=== PATIENT | female | born 1975 | race Caucasian/White ===

== ENCOUNTER 2017-11-15 05:34 | Inpatient (IN) | payer OTHER ==
[2017-11-15] MEDS ORDERED: Gabapentin 300 MG Cap PO ONE (05:45)
[2017-11-15] MEDS ORDERED: Celecoxib 200 MG Cap PO ONE (05:45)
[2017-11-15] MEDS ORDERED: Scopolamine 1.5 MG Transdermal Patch TOP SCH (05:45)
[2017-11-15] MEDS ORDERED: Albuterol/Ipratropium 3.0-0.5 MG/3 ML Neb Soln NEB ONE (06:00)
[2017-11-15] MEDS ORDERED: Dextrose 5%-Lactated Ringers 1,000 ML IV SCH (06:00)
[2017-11-15] MEDS ORDERED: Meropenem 500 MG in Sodium Chloride 0.9% 50 ML IV ONE (06:00)
[2017-11-15] MEDS ORDERED: Acetaminophen 500 MG Tab PO ONE (06:00)
[2017-11-15] MEDS: Acetaminophen 500 MG Tab PO ONE ×3 (06:03→07:11)
[2017-11-15] MEDS ORDERED: cefOXitin 2 GM Vial ONE (06:47)
[2017-11-15] MEDS ORDERED: fentaNYL 250 MCG/5 ML SDV ONE (07:08)
[2017-11-15] MEDS ORDERED: Glycopyrrolate 0.2 MG/ML 5 ML MDV ONE (07:08)
[2017-11-15] MEDS ORDERED: Succinylcholine 200 MG/10 ML MDV ONE (07:08)
[2017-11-15] MEDS ORDERED: Propofol 200 MG/20 ML SDV ONE (07:08)
[2017-11-15] MEDS ORDERED: Dexamethasone 4 MG/ML SDV ONE (07:08)
[2017-11-15] MEDS ORDERED: Ondansetron 4 MG/2 ML SDV ONE (07:08)
[2017-11-15] MEDS ORDERED: Neostigmine Methylsulfate 1 MG/ML 5 ML Syringe ONE (07:08)
[2017-11-15] MEDS ORDERED: Rocuronium 50 MG/5 ML Vial ONE (07:08)
[2017-11-15] MEDS ORDERED: Atropine 0.4 MG/ML SDV ONE (07:57)
[2017-11-15] MEDS ORDERED: Ketamine 500 MG/5 ML MDV IV SCH (08:00)
[2017-11-15] MEDS ORDERED: Lidocaine 2% 100 MG/5 ML Syringe IVPUSH SCH (08:00)
[2017-11-15] MEDS ORDERED: Lidocaine 0.4%/D5W 2 GM/500 ML BAG IV SCH ×2 (08:00)
[2017-11-15] MEDS ORDERED: Ropivacaine 50 ML, Dexamethasone 8 MG, EPINEPHrine 0.4 MG, Sodium Chloride 0.9% 27.6 ML NERVRT SCH ×4 (08:00)
[2017-11-15] MEDS ORDERED: fentaNYL 100 MCG/2 ML SDV ONE (09:35)
[2017-11-15] MEDS ORDERED: Insulin Lispro 100 Unit/ML 3 ML KwikPen SUBCUT ONE (10:15)
[2017-11-15] MEDS: hydrOXYzine HCl 100 MG/2 ML SDV IM PRN ×2 (11:51→20:14)
[2017-11-15] MEDS ORDERED: Labetalol 20 MG/4 ML Syringe IVPUSH PRN (12:00)
[2017-11-15] MEDS ORDERED: Ondansetron 4 MG/2 ML SDV IVPUSH PRN (12:00)
[2017-11-15] MEDS ORDERED: diphenhydrAMINE 50 MG/ML SDV IVPUSH PRN (12:00)
[2017-11-15] MEDS ORDERED: Albuterol/Ipratropium 3.0-0.5 MG/3 ML Neb Soln INH PRN (12:00)
[2017-11-15] MEDS ORDERED: Metoclopramide 10 MG/2 ML SDV IVPUSH PRN (12:00)
[2017-11-15] MEDS ORDERED: SCOPOLAMINE PATCH CHECK TOP SCH (12:00)
[2017-11-15] MEDS ORDERED: Pantoprazole 40 MG Vial IVPUSH SCH (13:00)
[2017-11-15] MEDS: Meropenem 500 MG in Sodium Chloride 0.9% 50 ML IV SCH ×2 (13:38→17:51)
[2017-11-15] MEDS ORDERED: Gabapentin 250 MG/5 ML Solution ML 470 ML Bottle PO SCH (14:00)
[2017-11-15] MEDS: Acetaminophen Soln 650 MG/20.3 ML UD Cup PO SCH ×2 (15:02→19:04)
[2017-11-15] MEDS: Albuterol/Ipratropium 3.0-0.5 MG/3 ML Neb Soln INH SCH ×2 (15:08→20:15)
[2017-11-15] MEDS ORDERED: MVI, Adult with Vitamin K 10 ML, Thiamine 200 MG, Chromium/Copper/Mang/Selen/Zn 1 ML in... IV SCH ×4 (16:00)
[2017-11-15] MEDS: Insulin Lispro 100 Unit/ML 3 ML KwikPen SUBCUT PRN ×2 (16:01→21:50)
[2017-11-15] MEDS ORDERED: metFORMIN 500 MG Tab PO SCH (17:00)
[2017-11-15] MEDS: Heparin Sodium 5,000 Units/ML Vial SUBCUT SCH (17:51)
[2017-11-15] MEDS: Dextrose 5%-Lactated Ringers 1,000 ML IV SCH (22:08)
[2017-11-16] MEDS: Acetaminophen Soln 650 MG/20.3 ML UD Cup PO SCH ×4 (01:12→21:35)
[2017-11-16] MEDS: Meropenem 500 MG in Sodium Chloride 0.9% 50 ML IV SCH (01:12)
[2017-11-16] MEDS ORDERED: Iohexol 647 MG/ML 50 ML SDV PO ONE (03:30)
[2017-11-16] MEDS: Dextrose 5%-Lactated Ringers 1,000 ML IV SCH (04:13)
[2017-11-16] MEDS: Insulin Lispro 100 Unit/ML 3 ML KwikPen SUBCUT PRN ×2 (04:26→10:27)
[2017-11-16] MEDS: hydrOXYzine HCl 100 MG/2 ML SDV IM PRN (04:26)
[2017-11-16] MEDS: Heparin Sodium 5,000 Units/ML Vial SUBCUT SCH ×2 (05:47→18:02)
[2017-11-16] MEDS ORDERED: Lactated Ringers 1,000 ML IV SCH (06:15)
[2017-11-16] MEDS ORDERED: Ondansetron 4 MG Tab.DIS PO PRN (06:37)
[2017-11-16] MEDS ORDERED: Albuterol 8 GM Inhaler INH PRN (06:38)
[2017-11-16] MEDS ORDERED: Non-Formulary Medication 1 Each (Etonogestrel [Nexplanon] 68 MG) SQ SCH (06:45)
[2017-11-16] MEDS: Albuterol/Ipratropium 3.0-0.5 MG/3 ML Neb Soln INH SCH ×4 (07:33→22:32)
[2017-11-16] MEDS ORDERED: metFORMIN 500 MG Tab PO SCH (08:00)
[2017-11-16] MEDS: metFORMIN 500 MG Tab PO SCH ×2 (08:29→16:00)
[2017-11-16] MEDS: Celecoxib 200 MG Cap PO SCH (08:29)
--- NOTE | 2017-11-16 09:20 | CR ---
UGI wo KUB HISTORY: eval R -Y GBP FINDINGS: After administration of oral contrast, upright views were obtained. Post operative changes gastric bypass. Surgical drains in place. No evidence for leak. Contrast passes freely into proximal small bowel loops. IMPRESSION: No evidence for leak or obstruction.
--- NOTE | 2017-11-16 09:44 | PN ---
DATE OF SERVICE: 11/16/2017 SUBJECTIVE: Juany is postoperative day #1, her upper GI this morning was normal. She had a temp max of 101.2, pulse was in the 90s, after using IS it improved. Rates pain between a 3/10 and a 6/10. Blood sugars were 280 and 160. She has been up ambulating. REVIEW OF SYSTEMS: Remainder of review of systems negative for any pertinent positives and negatives. OBJECTIVE: GENERAL: Juany Will is a 42-year-old female. She is alert and orientated. VITAL SIGNS: TPR 99.3, 99, 18, and blood pressure 156/79. HEENT: Negative. NECK: Supple. HEART: Regular rate and rhythm. LUNGS: Clear. ABDOMEN: Dressings dry and intact. GIAN drain intact. EXTREMITIES: Without peripheral edema. ASSESSMENT: Laparoscopic Nahed-en-Y gastric bypass surgery, liver biopsy, repair of diaphragmatic hernia and excision of mediastinal lipoma for morbid obesity, marked hepatomegaly, diaphragmatic hernia, and mediastinal lipoma. Date of surgery 11/15/2017. Surgeon, Isaac Cesar MD. PLAN: 1. Dilaudid 2 mg 1 to 2 every 4 hours p.r.n. pain. 2. Metformin 1000 mg b.i.d., Celebrex, Nexplanon continue, losartan 25 mg p.o. daily, propranolol 80 mg p.o. b.i.d.; Sertraline (Zoloft) 100 mg p.o. daily, Dyazide 37.5/25 one capsule daily, and Zofran ODT 4 mg p.o. q.4 hours p.r.n. nausea. 3. Good pulmonary toilet. 4. We will evaluate p.r.n. or in the a.m. Ирина Gillette PA-C /[id number]
[2017-11-16] MEDS: Losartan 50 MG Tab PO SCH (10:15)
[2017-11-16] MEDS: Propranolol 40 MG Tab PO SCH ×2 (10:15→21:35)
[2017-11-16] MEDS: HYDROmorphone 2 MG Tab PO PRN ×3 (10:15→21:39)
[2017-11-16] MEDS: Hydrochlorothiazide/Triamterene 25-37.5 Tab PO SCH (10:16)
[2017-11-16] MEDS: Sertraline 50 MG Tab PO SCH (10:16)
[2017-11-16] MEDS: Pantoprazole 40 MG Delayed-Release Granules 1 Packet PO SCH (12:31)
--- NOTE | 2017-11-16 15:16 | OR ---
DATE OF PROCEDURE: 11/15/2017 PREOPERATIVE DIAGNOSIS: Morbid obesity. POSTOPERATIVE DIAGNOSES: 1. Morbid obesity. 2. Extreme hepatomegaly. 3. Paraesophageal diaphragmatic hernia. 4. Mediastinal lipoma. PROCEDURE PERFORMED: 1. Laparoscopic Nahed-en-Y gastric bypass with long limb gastroenterostomy (15454). 2. Mario-Cut needle liver biopsy (43708). 3. Repair of paraesophageal diaphragmatic hernia (78314). 4. Excision of mediastinal lipoma (23986). ANESTHESIA: General. COMMERCIAL [employer]ES ACCOUNT ASSISTANT: Ирина Gillette PA-C. INDICATIONS FOR PROCEDURE: This is a 42-year-old presenting with longstanding morbid obesity and increasingly significant comorbidities, including a progressively difficult to manage type 2 diabetes mellitus. Plan is to proceed with a gastric bypass procedure. Potential risks including bleeding, infection, leaks from various GI tract closures, problems with bowel obstruction over time, as well as possibility of cardiopulmonary, septic, or hemorrhagic complications leading to were all discussed, and the patient wishes to proceed. DETAILS OF PROCEDURE: The patient was taken to the operating room and placed in a supine position. After general endotracheal anesthesia was induced, the abdomen was prepped and draped and an orogastric tube placed. At 15 cm inferior and 5 cm left of xiphoid process, a transverse incision was made and peritoneal cavity entered under direct vision with Optiview trocar and inflated to 15 mmHg pressure with CO2. Following this, 5 additional trocars were placed across the upper and mid abdomen. General exploration was undertaken. The patient was noted to have marked hepatomegaly. This hepatomegaly was quite striking with the left lobe liver coming down almost to the left of the umbilicus. The liver was grossly fatty infiltrated, but not cirrhotic. Mario-Cut needle biopsies obtained in the left lobe liver. Minimal bleeding from the biopsy sites was seen and the area then cauterized. Bilateral subcostal transversus abdominis plane blocks were then placed with direct visualization of the needle in the correct plane. The omentum was then divided in the midline up to the level of the transverse colon. This allowed identification of the small bowel to the ligament of Treitz. Small bowel was then traced out 150 cm distal to that point, where it was divided transversely with RENE stapler. Small bowel was then traced out an additional 200 cm, where the [id number] enteroenterostomy was accomplished with internal firing of the Endo-RENE 60 mm stapler. The common opening was then closed transversely with the same stapler, the angles anastomosed, and the mesenteric defect approximated with some 0 Ethibond stitch, along with fibrin sealant. The divided end of the Nahed limb was then from the mesentery for a few centimeters, which allowed an antecolic position of the Nahed limb up to the level of the gastroesophageal junction without tension. The liver was retracted anteriorly. The patient was noted to have a moderate-sized paraesophageal diaphragmatic hernia with prolapse of a portion of the gastric fundus and perigastric fat in a plane anterior to the course of the esophagus. This was reduced and the peritoneum overlying incised and reflected downward. Anterior repair of the diaphragmatic hernia was then accomplished with 0 Ethibond sutures and reinforced with PTFE pledgets. During the course of the mediastinal dissection, a lipoma was encountered, and the mediastinal lipoma was excised and sent as a separate specimen. The gastrointestinal catheter was then inflated to 15 mL and pulled up snugly against the EG junction. The gastric wall over the apex balloon was then marked with electrocautery and balloon catheter deflated and pulled up in the esophagus. The lesser omental tissue adjacent to the gastric cardia was then incised, allowing dissection of the stomach behind the gastric cardia. The pouch formation was initiated with transverse firing on the gastric cardia at the point of the cauterized jeffrey. Pouch was then completed with 2 additional firings of RENE stapler up to and through the angle of His. Upon completion of the pouch, both staple lines were noted to be intact. The anvil of a 25 mm EEA stapler was attached to a [place] sump type tube. The latter was taken out through a small opening in the gastric pouch, allowing the anvil likewise to be pulled down within the gastric pouch. The divided Nahed limb was then opened and the main body of the EEA stapler passed several centimeters in the lumen of the small bowel and brought up the anvil and united with it, thus creating the gastrojejunostomy. Upon removal of the stapler, double donuts of mucosa were noted within it. The small bowel was closed off with a vascular staple line. Gastrojejunostomy was reinforced with some 3-0 Vicryl seromuscular stitch, along with fibrin sealant. Leak test was accomplished with injection of 120 mL of air in the gastric pouch while submerged with a cefoxitin-containing saline solution. A single Cheng-Pastor drain was then placed through the left lateral trocar site and positioned adjacent to the gastric cardia and from there up into the splenic fossa. With no further problems noted, trocars were removed and the peritoneal cavity deflated. Incision at the skin level was closed with 4-0 Vicryl stitch, which was also used to affix the drain. The patient was taken to the recovery room in satisfactory condition. There were no other complications. Physician plant attendant or assistant operator, Ирина Gillette, played an essential role in assisting in this case, helping to positioning the patient, retract structures as needed, as well as suturing and cutting sutures when indicated. Her presence improved patient safety and decreased operative time. Isaac Cesar MD /[id number]
[2017-11-16] MEDS ORDERED: MVI, Adult with Vitamin K 10 ML, Thiamine 200 MG, Chromium/Copper/Mang/Selen/Zn 1 ML in... IV SCH ×4 (16:00)
[2017-11-16] MEDS ORDERED: Non-Formulary Medication 1 Each (Atorvastatin [Lipitor] 40 MG) PO SCH (21:00)
[2017-11-16] MEDS ORDERED: diphenhydrAMINE 25 MG Cap PO PRN (23:04)
[2017-11-17] MEDS: Acetaminophen Soln 650 MG/20.3 ML UD Cup PO SCH ×2 (03:05→08:01)
[2017-11-17] MEDS: Heparin Sodium 5,000 Units/ML Vial SUBCUT SCH (05:55)
[2017-11-17] MEDS ORDERED: hydrOXYzine HCl 25 MG Tab PO PRN (06:55)
[2017-11-17] MEDS: Albuterol/Ipratropium 3.0-0.5 MG/3 ML Neb Soln INH SCH (07:21)
[2017-11-17] MEDS: HYDROmorphone 2 MG Tab PO PRN (08:00)
[2017-11-17] MEDS: metFORMIN 500 MG Tab PO SCH (08:01)
[2017-11-17] MEDS: Propranolol 40 MG Tab PO SCH (08:01)
[2017-11-17] MEDS: Celecoxib 200 MG Cap PO SCH (08:01)
[2017-11-17] MEDS: Losartan 50 MG Tab PO SCH (08:02)
[2017-11-17] MEDS: Sertraline 50 MG Tab PO SCH (08:02)
[2017-11-17] MEDS: Hydrochlorothiazide/Triamterene 25-37.5 Tab PO SCH (08:02)
[2017-11-17] MEDS: Pantoprazole 40 MG Delayed-Release Granules 1 Packet PO SCH (08:06)
[2017-11-17] MEDS ORDERED: Cyanocobalamin (Vitamin B12) 1,000 MCG/ML SDV IM ONE (09:00)
--- NOTE | 2017-11-17 09:24 | DISCH ---
ADMISSION DIAGNOSES: Morbid obesity, BMI 42.2; hypertension; diabetes type 2, uncontrolled; hyperlipidemia; gastroesophageal reflux disease; anxiety. DISCHARGE DIAGNOSES: Laparoscopic Nahed-en-Y gastric bypass surgery with long limb gastroenterostomy, Mario-Cut needle liver biopsy, repair of paraesophageal diaphragmatic hernia, and excision of mediastinal lipoma for morbid obesity, extreme hepatomegaly, paraesophageal diaphragmatic hernia, mediastinal lipoma. Date of surgery: 11/15/2017. Surgeon: Isaac Cesar MD. HISTORY: Juany Will is a 42-year-old female with longstanding history of morbid obesity and increasing comorbidities. After preoperative evaluation, discussion of possible risks and possible complications, she wished to proceed with surgical procedure. HOSPITAL COURSE: Juany had her surgery on 11/15/2017. She had no operative complications. On postoperative day #1, she was started on a step-2 gastric bypass diet without cereal. She received dietary instructions. On postoperative day #2, her vital signs were stable. Pain was managed. Activity was good. Oral intake adequate. She was able to be discharged to home. PHYSICAL EXAMINATION: GENERAL: Juany Will is a 42-year-old female. VITAL SIGNS: Height is 5 feet 1 inch, weight is 223 pounds 3.2 ounces, BMI 42.3. HEENT: Negative. NECK: Supple. HEART: Regular rate and rhythm. LUNGS: Clear. ABDOMEN: Sutures intact at the time of exam. GIAN drain remained intact but will be removed prior to discharge. Abdominal binder is on. EXTREMITIES: Without peripheral edema. DISPOSITION: Discharged to home. CONDITION: Stable and improving. FOLLOWUP APPOINTMENT: With Ирина Gillette PA-C at [place], [place] on 11/22/2017 at 10:30 a.m. HOME MEDICATIONS: 1. Tylenol 650 mg q.6 h. for pain. 2. Dilaudid 2 mg 1 to 2 every 4 hours p.r.n. pain #30. 3. Hydroxyzine 25 mg oral q.6 h. p.r.n. pain #30. 4. Milk of magnesia 30 mL daily until BM. Two doses were sent home with the patient. 5. Metformin 1000 mg immediate release oral twice daily with meals, #60. 6. Zofran ODT one q.4 h. p.r.n. nausea #30. She is to resume home medication of ProAir inhaler 1 to 2 puffs every 4 hours p.r.n. shortness of breath, Celebrex 200 mg oral daily, Nexplanon, Cozaar 25 mg oral daily, omeprazole 40 mg oral daily, propranolol/Inderal 80 mg oral twice daily, sertraline/Zoloft 50 mg oral daily, triamterene hydrochlorothiazide/Dyazide 37.5/25 one daily. Stop taking Trulicity, fenofibrate until next appointment. Ferrous sulfate, Amaryl, Lipitor, and metformin XR. Vitamins and medications will be reviewed at first postoperative appointment. DISCHARGE DIET: Step-2 gastric bypass diet with no cereal until 11/30/2017. Diet after discharge; drink 8 to 10 glasses of water a day. ACTIVITY: No lifting greater than 10 pounds for 2 weeks. Other activity; walk at least 6 times daily, distance and time as tolerated inside your home. Driving: Do not drive for 1 week and then while on pain medication. Shower/bathing; may shower. DISCHARGE INSTRUCTIONS: Notify provider if any fever, increased pain, swelling, redness, nausea, or vomiting. Wound care: Keep site clean and dry. Wear abdominal binder for 2 weeks and then as tolerated. SPECIAL INSTRUCTIONS: 1. Check blood sugars twice a day and bring to clinic appointments. 2. Keep a record of protein and liquid intake and bring to clinic appointments. 3. Use incentive spirometer 10 times every hour while awake.
== END 2017-11-17 10:52 | disposition home or self-care (01) | DRG 621 ==
LOC: JP.SDS 05:34 → JP.SDSSCHI 05:34 → EDSTATUS 08:30 → JP.2SS 09:50
PROVIDERS: ADMIT Surgery; ATTEND Surgery
PROC: 0FB24ZX Excision of Left Lobe Liver, Percutaneous Endoscopic Approach, Diagnostic (ICD-10-PCS; principal; 2017-11-15)
PROC: 0JB63ZZ Excision of Chest Subcutaneous Tissue and Fascia, Percutaneous Approach (ICD-10-PCS; principal; 2017-11-15)
PROC: 0BQT4ZZ Repair Diaphragm, Percutaneous Endoscopic Approach (ICD-10-PCS; principal; 2017-11-15)
PROC: 0D164ZA Bypass Stomach to Jejunum, Percutaneous Endoscopic Approach (ICD-10-PCS; principal; 2017-11-15)
DX: E66.01 Morbid (severe) obesity due to excess calories (principal); E11.9 Type 2 diabetes mellitus without complications; Z68.41 Body mass index [BMI] 40.0-44.9, adult; I10 Essential (primary) hypertension; E78.5 Hyperlipidemia, unspecified; K21.9 Gastro-esophageal reflux disease without esophagitis; F41.9 Anxiety disorder, unspecified; K44.9 Diaphragmatic hernia without obstruction or gangrene; R16.0 Hepatomegaly, not elsewhere classified; D17.1 Benign lipomatous neoplasm of skin and subcutaneous tissue of trunk; G47.00 Insomnia, unspecified; Z79.899 Other long term (current) drug therapy; Z79.84 Long term (current) use of oral hypoglycemic drugs; Z88.6 Allergy status to analgesic agent; Z88.1 Allergy status to other antibiotic agents; Z88.5 Allergy status to narcotic agent; Z77.22 Contact with and (suspected) exposure to environmental tobacco smoke (acute) (chronic); Z98.891 History of uterine scar from previous surgery
CPT/HCPCS: 36415; 74240; 74240-26; 81025; 82962; 86850; 86900; 86901; 94640; A9270-GY; C9113; J0171; J0330; J0461; J0694; J1100; J1644; J1815; J2001; J2185; J2405; J2704; J2710; J2795; J3010; J3410; J3411; J3420; J3490; J7030; J7042; J7050; J7120; J7620-GY; Q9967

== ENCOUNTER 2021-04-10 07:11 | Day surgery (SDC) | payer OTHER ==
[2021-04-10] MEDS ORDERED: Dextrose 5%-Lactated Ringers 1,000 ML IV SCH (08:00)
[2021-04-10] MEDS ORDERED: Albuterol/Ipratropium 3.0-0.5 MG/3 ML Neb Soln NEB ONE (08:00)
[2021-04-10] MEDS ORDERED: Acetaminophen 500 MG Tab PO ONE (08:00)
[2021-04-10] MEDS ORDERED: Levofloxacin/Dextrose 5%-Water 500 MG in Premix Bag 1 BAG IV ONE (08:00)
[2021-04-10 08:09] LABS: CORONAVIRUS COVID-19 NAA POSITIVE (NEGATIVE)
[2021-04-10] MEDS ORDERED: Ketamine 14 MG in Sodium Chloride 0.9% 19.86 ML IV SCH (09:15)
[2021-04-10] MEDS ORDERED: Ketamine 500 MG/5 ML MDV IV SCH (09:15)
[2021-04-10] MEDS ORDERED: Ropivacaine 40 ML, dexAMETHasone 8 MG, EPINEPHrine 0.4 MG, Sodium Chloride 0.9% 37.6 ML NERVRT SCH ×4 (09:15)
== END 2021-04-10 08:35 | disposition home or self-care (01) ==
LOC: JP.SDS 07:11
PROVIDERS: ATTEND Surgery
DX: K82.8 Other specified diseases of gallbladder (principal); Z53.09 Procedure and treatment not carried out because of other contraindication; U07.1 COVID-19; E11.9 Type 2 diabetes mellitus without complications; I10 Essential (primary) hypertension; K21.9 Gastro-esophageal reflux disease without esophagitis; F41.9 Anxiety disorder, unspecified; E78.49 Other hyperlipidemia; E53.8 Deficiency of other specified B group vitamins; E55.9 Vitamin D deficiency, unspecified; Z90.49 Acquired absence of other specified parts of digestive tract; Z98.890 Other specified postprocedural states; Z79.899 Other long term (current) drug therapy; Z98.84 Bariatric surgery status; E66.01 Morbid (severe) obesity due to excess calories; Z88.5 Allergy status to narcotic agent; Z88.8 Allergy status to other drugs, medicaments and biological substances; Z68.33 Body mass index [BMI] 33.0-33.9, adult
CPT/HCPCS: 0241U

== ENCOUNTER 2021-06-05 08:37 | Day surgery (SDC) | payer OTHER ==
[2021-06-05] MEDS ORDERED: Acetaminophen 500 MG Tab PO ONE (09:00)
[2021-06-05] MEDS ORDERED: Propofol 200 MG/20 ML SDV ONE (09:27)
[2021-06-05] MEDS ORDERED: Neostigmine Methylsulfate 1 MG/ML 5 ML Syringe ONE (09:27)
[2021-06-05] MEDS ORDERED: Ondansetron 4 MG/2 ML SDV ONE (09:27)
[2021-06-05] MEDS ORDERED: Rocuronium 50 MG/5 ML Vial ONE (09:27)
[2021-06-05] MEDS ORDERED: Glycopyrrolate 0.2 MG/ML 5 ML MDV ONE (09:27)
[2021-06-05] MEDS ORDERED: Dexamethasone 4 MG/ML SDV ONE (09:27)
[2021-06-05] MEDS ORDERED: fentaNYL 250 MCG/5 ML SDV ONE ×2 (09:28→11:42)
[2021-06-05] MEDS ORDERED: Dextrose 5%-Lactated Ringers 1,000 ML IV SCH (09:30)
[2021-06-05] MEDS ORDERED: Lidocaine 1% with EPINEPHrine 1:100,000 50 ML MDV ONE (09:41)
[2021-06-05] MEDS ORDERED: Bupivacaine 0.5% 50 ML MDV ONE (09:41)
[2021-06-05] MEDS ORDERED: Ketamine 14 MG in Sodium Chloride 0.9% 19.86 ML IV SCH (09:45)
[2021-06-05] MEDS ORDERED: Ketamine 500 MG/5 ML MDV IV SCH (09:45)
[2021-06-05] MEDS ORDERED: Ropivacaine 40 ML, dexAMETHasone 8 MG, EPINEPHrine 0.4 MG, Sodium Chloride 0.9% 37.6 ML NERVRT SCH ×4 (09:45)
[2021-06-05] MEDS ORDERED: Albuterol/Ipratropium 3.0-0.5 MG/3 ML Neb Soln NEB ONE (10:00)
[2021-06-05] MEDS ORDERED: Levofloxacin/Dextrose 5%-Water 500 MG in Premix Bag 1 BAG IV ONE (10:00)
[2021-06-05] MEDS ORDERED: Ketorolac 30 MG/ML SDV ONE ×2 (12:05)
[2021-06-05] MEDS ORDERED: HYDROmorphone 2 MG Tab PO PRN (13:59)
== END 2021-06-05 16:40 | disposition home or self-care (01) ==
LOC: JP.SDS 08:37 → JP.MS 12:40 → JP.SDS 16:40
PROVIDERS: ATTEND Surgery
DX: K81.1 Chronic cholecystitis (principal); K82.8 Other specified diseases of gallbladder; K42.0 Umbilical hernia with obstruction, without gangrene; E11.9 Type 2 diabetes mellitus without complications; I10 Essential (primary) hypertension; K21.9 Gastro-esophageal reflux disease without esophagitis; E78.5 Hyperlipidemia, unspecified; Z98.84 Bariatric surgery status
CPT/HCPCS: 36415; 80053; 82728; 83735; 84100; 85027; 88304; 94640; A9270-GY; J0171; J1100; J1885; J1956; J2405; J2704; J2710; J2795; J3010; J3490; J7121; J7620